=== PATIENT | male | born 1975 | race Two or more races ===

== ENCOUNTER 2018-05-26 00:10 | Emergency (ER) | payer BC ==
[~2018-05-26] VITALS: Ht 177.8 cm; Wt 105.2 kg
[2018-05-26 00:30] VITALS: BP 119/79
--- NOTE | 2018-05-26 00:30 | NUR ---
ED Nurse Note: Patient presents with complaints of pain and abscess due to spider bite.
[2018-05-26] MEDS ORDERED: Bacitracin Oint UD TOPIC ONE ×2 (01:05→01:15)
--- NOTE | 2018-05-26 01:08 | Emergency Room Report ---
History of Present Illness General Chief Complaint: Skin Rash/Abscess Source: Patient Present Illness HPI Patient present with complaints of lesion to his left finger, there is also lesion to the left lower leg one in the upper thigh one in the anterior tibial area Patient reports that the ones the lower leg started earlier this evening the lesion on the finger started 2 days ago Pain is 7 out of 10 Denies any fevers or chills denies any discharge from the sites on the leg denies any back or flank pain Allergies: Coded Allergies: No Known Allergies (Unverified , 05/26/18) Patient History Past Medical History: see triage record Pertinent Family History: none Reviewed Nursing Documentation: PMH: Agreed; PSxH: Agreed Nursing Documentation-PMH Past Medical History: No Stated History Review of Systems All Other Systems: negative except mentioned in HPI Physical Exam Vital Signs Date Time Temp Pulse Resp B/P (MAP) Pulse Ox O2 Delivery O2 Flow Rate FiO2 05/26/18 00:22 98.1 116 22 119/79 96 Room Air Sp02 EP Interpretation: reviewed, normal General Appearance: no apparent distress Head: normocephalic, atraumatic Eyes: bilateral eye PERRL, bilateral eye EOMI ENT: hearing grossly normal, normal pharynx Neck: supple, thyroid normal Respiratory: lungs clear, no retraction, no accessory muscle use Cardiovascular #1: regular rate, rhythm Gastrointestinal: non tender, soft Musculoskeletal: other - Paronychia left middle finger Neurologic: alert, oriented x3 Skin: other - 2 areas of cellulitis including the left anterior tibial distally the other proximal medial thigh, both are erythematous no obvious fluctuance palpable, also the lesion on the left finger as noted consistent with paronychia, Lymphatic: no adenopathy Procedures Incision and Drainage Incision and Drainage : Consent: Verbal Site: Left hand Blade Size: 11 I & D Procedure: betadine prep, sterile drapes applied, sterile dressing applied, gauze wick placed Anesthesia: 1% Lidocaine Volume Anesthetic (ccs): 3 Splint Applied?: No Sling Applied?: No Patient Tolerated: Well Complications: None Progress Patient had a digital block performed with injection of lidocaine approximately at the base of the finger also proximally on the medial aspect, after incision with 11 blade there was large amount of pus released Medical Decision Making Diagnostic Impression: Primary Impression: Acute paronychia Additional Impression: Cellulitis ER Course The lesions on the lower leg appear to be consistent with possible insect bite and secondary cellulitis, no obvious abscess formation at this time, the paronychia on the finger did need to be drained given the fluctuance Patient provided initial antibiotic here and requires close outpatient follow-up Last Vital Signs Date Time Temp Pulse Resp B/P (MAP) Pulse Ox O2 Delivery O2 Flow Rate FiO2 05/26/18 00:30 98.1 116 22 119/79 96 Room Air Status: improved Disposition: HOME, SELF-CARE Condition: Improved Scripts Trimethoprim/Sulfamethoxazole 160/800* (BACTRIM DS TABLET*) 1 Each Tablet 1 TAB ORAL Q12H, #20 TAB 0 Refills Prov: Yazmin Cole DO 05/26/18 Cephalexin* (KEFLEX*) 500 Mg Capsule 500 MG ORAL EVERY 6 HOURS for 10 Days, CAP Prov: Yazmin Cole DO 05/26/18 Ibuprofen* (MOTRIN*) 600 Mg Tablet 600 MG ORAL Q8H PRN for For Pain, #20 TAB 0 Refills Prov: Yazmin Cole DO 05/26/18 Additional Instructions: Patient is provided with the discharge instructions notified to follow up with primary doctor in the next 2-3 days otherwise return to the er with any worsening symptoms. Please note that this report is being documented using [employer] technology. This can lead to erroneous entry secondary to incorrect interpretation by the dictating instrument. Yazmin Cole DO May 26, 2018 01:08
[2018-05-26] MEDS ORDERED: Cephalexin 500mg cap ORAL ONE (01:15)
[2018-05-26] MEDS ORDERED: IBUPROFEN600 MG ORAL (01:21)
[2018-05-26] MEDS ORDERED: CEPHALEXIN500 MG ORAL (01:21)
[2018-05-26] MEDS ORDERED: BACTRIM DS TAB1 EAC1 ORAL (01:21)
--- NOTE | 2018-05-26 01:24 | NUR ---
ED Nurse Note: Patient cleared for discharge by ERMElizabeth, patient is ambulatory with unsteady gait due to pain. Patient tolerate dI&D well. Patient verbalized understanding of discharge instructions, is A&Ox4, and has no complaints at discharge. ID band removed and patient departed with all belongings.
[2018-05-26 01:26] VITALS: BP 119/79
== END 2018-05-26 01:30 | disposition home or self-care (01) ==
LOC: EMR 00:49
DX: L03.012 Cellulitis of left finger (principal)
CPT/HCPCS: 10060; 99283

== ENCOUNTER → 2018-11-04 | Emergency (ER) | payer BC ==
[~2018-11-04] VITALS: Ht 177.8 cm; Wt 108.9 kg
[~2018-11-04] MED LIST: BACTRIM DS TAB1 EAC1 ORAL; CEPHALEXIN500 MG ORAL; IBUPROFEN600 MG ORAL
[2018-11-04 02:29] VITALS: BP 125/88
--- NOTE | 2018-11-04 02:30 | NUR ---
ED Nurse Note: Pt walked into ER c/o LT foot 4th digit pain since 11/02. Pt stated he "thinks he has an infection". No drainage noted. Pt stated he is on his feet the majority of the day. Pt admitted to smoking THC tongiht therefore his HR 123. AAO x4, VSS at this time.
--- NOTE | 2018-11-04 02:40 | Emergency Room Report ---
History of Present Illness General Chief Complaint: Skin Rash/Abscess Source: Patient Present Illness HPI 43-year-old male with no past medical history. He presents with chief complaint of toe pain. He has a callus in between his fourth and fifth toe on the left foot. He said is been causing irritation. He claims only been 3 to 4 days. There is no redness or fever. No nausea no vomiting. Has not seen anybody for it. He put a Band-Aid over the fifth toe to help with the pain. No injury. Allergies: Coded Allergies: No Known Allergies (Unverified , 05/26/18) Patient History Past Medical History: see triage record, old chart reviewed Past Surgical History: none Pertinent Family History: none Social History: Denies: smoking Immunizations: other Reviewed Nursing Documentation: PMH: Agreed; PSxH: Agreed Nursing Documentation-PMH Past Medical History: No Stated History Review of Systems Eye: Denies: eye pain, blurred vision ENT: Denies: ear pain, nose congestion, throat swelling Respiratory: Denies: cough, shortness of breath Cardiovascular: Denies: chest pain, palpitations Gastrointestinal: Denies: abdominal pain, diarrhea, nausea, vomiting Musculoskeletal: Denies: back pain, joint pain Skin: Denies: rash Neurological: Denies: headache, numbness Endocrine: Denies: increased thirst, increased urine Hematologic/Lymphatic: Denies: easy bruising All Other Systems: negative except mentioned in HPI Physical Exam Vital Signs Date Time Temp Pulse Resp B/P (MAP) Pulse Ox O2 Delivery O2 Flow Rate FiO2 11/04/18 02:17 97.9 120 18 125/88 (100) 94 Room Air Vitals normal except for tachycardia. Repeat heart rate 100 Sp02 EP Interpretation: reviewed, normal General Appearance: well appearing, no apparent distress, alert Head: normocephalic, atraumatic Eyes: bilateral eye PERRL, bilateral eye EOMI ENT: hearing grossly normal, normal pharynx Neck: full range of motion, supple, no meningismus Respiratory: chest non-tender, lungs clear, normal breath sounds Cardiovascular #1: regular rate, rhythm, no murmur Gastrointestinal: normal bowel sounds, non tender, no mass, no organomegaly, no bruit, non-distended Musculoskeletal: back normal, gait/station normal, normal range of motion, other - Left foot: There is a callus on the ulnar aspect of the fourth toe. His toe has a bandage on it. Neurologic: alert, oriented x3 Psychiatric: mood/affect normal Medical Decision Making Diagnostic Impression: Primary Impression: Lamar or callus ER Course Patient with a callus to his toe. It is causing irritation to the other toe. No evidence of any infection. Patient said that his friend is a simplex operator. I told him to follow-up with his friend or simplex operator here. No evidence of any emergent issue. Last Vital Signs Date Time Temp Pulse Resp B/P (MAP) Pulse Ox O2 Delivery O2 Flow Rate FiO2 11/04/18 02:29 97.9 18 125/88 94 Room Air 11/04/18 02:17 120 Status: unchanged Disposition: HOME, SELF-CARE Condition: Stable Additional Instructions: Follow-up with simplex operator as soon as possible. Return if symptoms worsen. Khari Jacques MD Nov 04, 2018 02:40
--- NOTE | 2018-11-04 02:43 | NUR ---
ED Nurse Note: Pt cleared by health care Provider for discharge. DC instructions/prescription was given and explained to pt and verbalized understanding of teachings. All medical deviecs such as ID band removed. Pt is AAO x4, ambulatory and left with all personal belongings.
== END | disposition home or self-care (01) ==
LOC: EMR 02:48
DX: L84 Corns and callosities (principal)
CPT/HCPCS: 99282